=== PATIENT | female | born 1995 | race Hispanic/Latino ===

== ENCOUNTER 2019-09-30 20:11 | Emergency (ER) | payer OTHER, SELFPAY ==
[2019-09-30] MEDS ORDERED: Acetaminophen 500 MG TAB ONE (20:34)
[2019-10-02 11:46] LABS: SARS-CoV-2 MS2 Positive; SARS-CoV-2 N Gene Negative; SARS-CoV-2 S Gene Negative; SARS-CoV-2 orf1ab Negative
== END 2019-09-30 20:58 | disposition home or self-care (01) ==
LOC: NAV ERS 20:11
DX: J02.9 Acute pharyngitis, unspecified (principal); Z20.828 Contact with and (suspected) exposure to other viral communicable diseases
CPT/HCPCS: 87081; 87430; 87635; 99283; U0003